=== PATIENT | male | born 1965 | race Caucasian/White ===

== ENCOUNTER 2022-02-22 21:09 | Emergency (ER) | payer BC ==
[2022-02-22 22:19] LABS: TROPONIN I HIGH SENSITIVITY 43.4 pg/mL (<=60.3)
[2022-02-22 22:50] VITALS: BP 134/76; PULSE 70
== END 2022-02-22 23:04 | disposition home or self-care (01) ==
LOC: JP.ED 21:09 → MERGE 21:09 → JP.ED 23:04
DX: R07.2 Precordial pain (principal); I10 Essential (primary) hypertension; Z79.899 Other long term (current) drug therapy
CPT/HCPCS: 36415; 71046; 71046-26; 80053; 84484; 85025; 85379; 86140; 93005; 99285-25